=== PATIENT | male | born 1995 ===

== ENCOUNTER 2024-12-15 11:48 | Outpatient (CLI) | payer OTHER ==
[2024-12-15 12:32] LABS: URINE APPEARANCE Turbid; URINE BILIRRUBIN Negative (NEGATIVE); URINE BLOOD Negative; URINE COLOR Dark Yellow; URINE GLUCOSE Negative (NEGATIVE); URINE KETONE Trace (NEGATIVE); URINE LEUKOCYTE Negative; URINE NITRATE Negative; URINE PROTEIN Trace (NEGATIVE)
[2024-12-15 12:33] LABS: URINE BACTERIA 8.5 uL (0.0-1933); URINE RBC 3.6 uL (0.0-20.8); URINE WBC 4.2 uL (0.0-23.2)
[2024-12-15 12:51] LABS: BASO % 0.4 % (0.1-1.2); EOS # 0.08 (0.04-0.54); EOS % 1.7 % (0.7-7.0); HEMATOCRIT 45.3 % (40.1-51.0); LYMPH # 1.93 (1.18-3.74); MEAN CORPUSCULAR HEMOGLOBIN 30.7 pg (25.6-32.2); MONO # 0.31 (0.24-0.82); MONO % 6.7 % (4.7-12.5); NEUT # 2.25 (1.56-6.13); PLATELET COUNT 282 K/uL (163-369); RED BLOOD COUNT 5.21 M/uL (4.63-6.08); RED CELL DISTRIBUTION WIDTH 12.1 % (11.6-14.4)
[2024-12-15 12:55] LABS: URINE CAST 0.14 uL (0.0-1.40); URINE EPITHELIAL CELLS 1.2 uL (0.0-38.8)
[2024-12-15 13:39] LABS: ALBUMIN 4.2 gm/dL (3.4-5.0); BILIRUBIN TOTAL 0.7 mg/dL (0.3-1.2); CHOL HDL RATIO 4.4 (0-5.0); CREATININE SERUM 0.88 mg/dL (0.70-1.30); GFR 103.11; GLOBULINA 3.5 G/DL (2.4-3.5); POTASSIUM 4.04 mEq/L (3.5-5.1); T4 FREE 1.33 NG/ML (0.76-1.46); T4 TOTAL 9.13 UG/DL (4.5-12.1); TOTAL PROTEIN 7.7 gm/dL (6.4-8.2); TSH 1.11 uIU/mL (0.358-3.74)
== END 2024-12-15 11:49 | disposition home or self-care (01) ==
LOC: LAB 11:48
PROVIDERS: ATTEND Internal Medicine Cardiovascular Disease
DX: E78.2 Mixed hyperlipidemia (principal); E11.9 Type 2 diabetes mellitus without complications; E03.9 Hypothyroidism, unspecified